=== PATIENT | female | born 1985 | race African-American/Black ===

== ENCOUNTER 2016-06-06 22:32 | Emergency (ER) | payer SELFPAY ==
--- NOTE | 2016-06-07 01:59 | ER Document Report ---
ED General - General Chief Complaint: Sore Throat Stated Complaint: SORE THROAT Notes: Patient is a 30-year-old female without past medical history who presents with 8 days of sore throat. Describes the pain as a constant, dull, scratching pain. States it makes it difficult for her swallow but admits that she continues to eat and drink. Denies any shortness of breath. She has seen her primary care doctor regarding this concern was told it was a viral infection. She has been taking ibuprofen with minimal improvement of her symptoms. Multiple sick contacts with similar symptoms. She denies any headache or altered mental status. She does have a history of similar symptoms in the past. TRAVEL OUTSIDE OF THE [place] IN LAST 30 DAYS: No - Related Data Allergies/Adverse Reactions: Penicillins Allergy (Verified 06/06/16 23:39) Past Medical History - General Information source: Patient - Social History Smoking Status: Never Smoker Chew tobacco use (# tins/day): No Frequency of alcohol use: Occasional Drug Abuse: None Lives with: Spouse/Significant other Family History: Reviewed & Not Pertinent Patient has suicidal ideation: No Patient has homicidal ideation: No Renal/ Medical History: Denies: Hx Peritoneal Dialysis Review of Systems - Review of Systems Notes: Constitutional: Negative for fever. HENT: Positive for sore throat. Eyes: Negative for visual changes. Cardiovascular: Negative for chest pain. Respiratory: Negative for shortness of breath. Gastrointestinal: Negative for abdominal pain, vomiting or diarrhea. Genitourinary: Negative for dysuria. Musculoskeletal: Negative for back pain. Skin: Negative for rash. Neurological: Negative for headaches, weakness or numbness. 10 point ROS negative except as marked above and in HPI. Physical Exam - Vital signs Vitals: Temp Pulse Resp BP Pulse Ox 98.5 F 81 20 153/114 H 94 06/06/16 23:33 06/06/16 23:33 06/06/16 23:33 06/06/16 23:33 06/06/16 23:33 Interpretation: Hypertensive Notes: PHYSICAL EXAMINATION: GENERAL: Well-appearing, well-nourished and in no acute distress. HEAD: Atraumatic, normocephalic. EYES: Pupils equal round and reactive to light, extraocular movements intact, sclera anicteric, conjunctiva are normal. ENT: nares patent, oropharynx clear without exudates. Moist mucous membranes. NECK: Normal range of motion, submandibular and bilateral anterior lymphadenopathy LUNGS: Breath sounds clear to auscultation bilaterally and equal. No wheezes rales or rhonchi. HEART: Regular rate and rhythm without murmurs ABDOMEN: Soft, nontender, normoactive bowel sounds. No guarding, no rebound. No masses appreciated. EXTREMITIES: Normal range of motion, no pitting or edema. No cyanosis. NEUROLOGICAL: No focal neurological deficits. Moves all extremities spontaneously and on command. PSYCH: Normal mood, normal affect. SKIN: Warm, Dry, normal turgor, no rashes or lesions noted. Course - Re-evaluation Re-evalutation: 06/07/16 01:59 Presentation of several days of sore throat in an otherwise well-appearing patient. Rapid strep is negative. History and exam are not consistent with a retropharyngeal abscess or peritonsillar abscess. Airway is patent. No difficulty handling oral secretions. Vitals within normal limits. At this time will discharge with return precautions and follow-up recommendations. Verbal discharge instructions given a the bedside and opportunity for questions given. Medication warnings reviewed. Patient is in agreement with this plan and has verbalized understanding of return precautions and the need for primary care follow-up in the nex - Vital Signs Vital signs: Temp Pulse Resp BP Pulse Ox 98.6 F 80 18 162/107 H 94 06/07/16 02:07 06/07/16 02:07 06/07/16 02:07 06/07/16 02:07 06/07/16 02:07 Discharge - Discharge Clinical Impression: Sore throat Condition: Good Disposition: HOME, SELF-CARE Additional Instructions: Your symptoms are most likely due to a viral infection it should resolve over the next 7-14 days. You should take [id number]-[id number] guanfacine per bottle instructions to help thin the mucus. For nasal congestion: I would recommend that you get [id number] oxymetazoline also known is afrin. Use only per bottle instructions and be sure to never use this for more than 3 days if you can develop severe rebound congestion. You may also use tylenol or ibuprofen as needed for aches and thorat discomfort. Please be sure to drink plenty of fluids and get rest. Return to the emergency department he began having difficulty breathing, chest pain, persistent vomiting, or any other symptoms that are concerning to you.
[2016-06-07] MEDS ORDERED: DEXAMETHASONE 4 MG TABLET PO ONE (02:05)
[2016-06-07 02:08] VITALS: BP 162/107
== END 2016-06-07 02:18 | disposition home or self-care (01) ==
LOC: ER 22:32
DX: J02.9 Acute pharyngitis, unspecified (principal)
CPT/HCPCS: 87070; 87880; 99283

== ENCOUNTER 2016-10-19 03:49 | Emergency (ER) | payer OTHER ==
[2016-10-19 03:54] VITALS: BP 162/114
--- NOTE | 2016-10-19 05:01 | ER Document Report ---
HPI - HPI Pain Level: 2 Notes: Patient is a 31-year-old female presents the ED complaining of nasal congestion/ discharge, right ear pain, decreased hearing to the right ear, and an occasional dry cough. Patient states her symptoms have been ongoing for 2 days. She still eating and drinking without any difficulties. Patient is allergic to penicillins. Denies any daily medications or other significant past medical history. Patient is a former smoker but denies any other illicit drug use. Denies any headache, fever, head injury, neck pain/stiffness, sore throat, chest pain, palpitations, syncope, shortness of breath, wheeze, dyspnea , abdominal pain, nausea/vomiting/diarrhea, dysuria, hematuria, or rash. - ROS Notes: REVIEW OF SYSTEMS: CONSTITUTIONAL : Denies fever, chills, or sweats. Denies recent illness. EENT: see hpi CARDIOVASCULAR: Denies chest pain. Denies palpitations or racing or irregular heart beat. Denies ankle edema. RESPIRATORY: see hpi GASTROINTESTINAL: Denies abdominal pain or distention. Denies nausea, vomiting , or diarrhea. Denies blood in vomitus, stools, or per rectum. Denies black, tarry stools. Denies constipation. GENITOURINARY: Denies difficulty urinating, painful urination, burning, frequency, blood in urine, or discharge. MUSCULOSKELETAL: Denies back or neck pain or stiffness. Denies joint pain or swelling. SKIN: Denies rash, lesions or sores. NEUROLOGICAL: Denies confusion or altered mental status. Denies passing out or loss of consciousness. Denies dizziness or lightheadedness. Denies headache. Denies weakness or paralysis or loss of use of either side. Denies problems with gait or speech. Denies sensory loss, numbness, or tingling. ALL OTHER SYSTEMS REVIEWED AND NEGATIVE. Dictation was performed using [employer] voice recognition software - REPRODUCTIVE LMP: na - DERM Skin Color: Normal Past Medical History - Social History Smoking Status: Former Smoker Family History: Reviewed & Not Pertinent Patient has suicidal ideation: No Patient has homicidal ideation: No Renal/ Medical History: Denies: Hx Peritoneal Dialysis Vertical Provider Document - CONSTITUTIONAL Agree With Documented VS: Yes Notes: PHYSICAL EXAMINATION: GENERAL: Well-appearing, well-nourished and in no acute distress. HEAD: Atraumatic, normocephalic. EYES: Pupils equal round and reactive to light, extraocular movements intact, sclera anicteric, conjunctiva are normal. ENT: EAC clear b/l. TM's intact b/l without fluid, or perforation, + air behind rt TM without bulging. Nares patent and with clear discharge. oropharynx clear without exudates. No tonsilar hypertrophy or erythema. Moist mucous membranes. No sinus tenderness. NECK: Normal range of motion, supple without lymphadenopathy. No rigidity/ meningismus. LUNGS: Breath sounds clear to auscultation bilaterally and equal. No wheezes rales or rhonchi. HEART: Regular rate and rhythm without murmurs, rubs, gallops. PSYCH: Normal mood, normal affect. SKIN: Warm, Dry, normal turgor, no rashes or lesions noted. - INFECTION CONTROL TRAVEL OUTSIDE OF THE [place] IN LAST 30 DAYS: No - RESPIRATORY O2 Sat by Pulse Oximetry: 94 Course - Re-evaluation Re-evalutation: 10/19/16 04:59 Patient is an afebrile, well-hydrated, 31-year-old female who presents the ED with acute sinusitis/URI, suspect viral at this time based on H&P. Vitals are stable. PE otherwise unremarkable. I will send the patient home with Nasonex to use as directed. Advised Mucinex with Sudafed as well and nasal saline rinses. Conservative measures otherwise. Recheck with PCM in 2-3 days. Return to ED with any worsening/concerning symptoms otherwise as reviewed in discharge. Consider consult with ENT for ongoing symptoms as well. - Vital Signs Vital signs: Temp Pulse Resp BP Pulse Ox 97.9 F 79 18 162/114 H 94 10/19/16 03:50 10/19/16 03:50 10/19/16 03:50 10/19/16 03:50 10/19/16 03:50 Discharge - Discharge Clinical Impression: URI (upper respiratory infection) Qualifiers: URI type: unspecified URI Qualified Code(s): J06.9 - Acute upper respiratory infection, unspecified Acute sinusitis Qualifiers: Sinusitis location: maxillary Recurrence: not specified as recurrent Qualified Code(s): J01.00 - Acute maxillary sinusitis, unspecified Condition: Stable Disposition: HOME, SELF-CARE Instructions: Upper Respiratory Illness ([facility]), Viral Syndrome ([facility]), Sinusitis ([facility]) Additional Instructions: Maintain adequate fluid intake Take meds as directed tylenol/ibuprofen as needed over the counter cold medication as needed for symptoms--mucinex/pseudafed nasal saline rinses Humidified air may help F/u: with your PCM in 2-3 days for a recheck Return to the ED with any fever, worsening pain, facial swelling, neck pain/ stiffness, chest pain, shortness of breath, trouble swallowing/breathing, abdominal pain, n/v/d, or worsening/concerning symptoms otherwise. Prescriptions: Mometasone Furoate [Nasonex] 2 spray NS DAILY #1 spray.pump Referrals: [facility] [Provider Group] - Follow up as needed [facility] [Provider Group] - Follow up as needed ENT [Provider Group] - Follow up as needed
== END 2016-10-19 05:24 | disposition home or self-care (01) ==
LOC: ER 03:49
DX: J06.9 Acute upper respiratory infection, unspecified (principal); J01.00 Acute maxillary sinusitis, unspecified; R09.81 Nasal congestion; H92.01 Otalgia, right ear; Z88.0 Allergy status to penicillin; Z87.891 Personal history of nicotine dependence
CPT/HCPCS: 99282

== ENCOUNTER 2017-05-19 21:24 | Emergency (ER) | payer OTHER ==
[2017-05-19 22:30] VITALS: BP 158/114
--- NOTE | 2017-05-19 23:26 | RADIOLOGY REPORT (SQ) ---
EXAM DESCRIPTION: KNEE LEFT 3 VIEWS CLINICAL HISTORY: 31 years, Female, PAIN COMPARISON: None. NUMBER OF VIEWS: 3 Findings: Bones, joints, and soft tissues of the left knee appear intact. IMPRESSION: No acute findings.
--- NOTE | 2017-05-20 00:19 | ER Document Report ---
ED Extremity Problem, Lower - General Chief Complaint: L knee pain s/p fall Stated Complaint: FALL/KNEE PAIN Time Seen by Provider: 05/19/17 23:25 Mode of Arrival: Ambulatory Information source: Patient TRAVEL OUTSIDE OF THE [place] IN LAST 30 DAYS: No - HPI Patient complains to provider of: Injury, Pain Location: Knee Occurred: Yesterday Notes: Patient is here with complaints of left knee pain. She states that she tripped going up the steps at her home last evening and twisted her knee. She says states that it was somewhat sore today when she woke up. While she was walking at work, she states that her knee "locked up on her "causing her to fall onto her left knee. She has had increased pain since that time. She is able to ambulate. She denies any numbness, tingling, weakness. She denies any fever or redness. No nausea, vomiting, diarrhea. She denies any other injuries. She denies any rash. Pain is worse with walking and movement as well as touching the anterior knee, nothing seems to make it better. She denies any other injuries or other complaints at this time. - Related Data Allergies/Adverse Reactions: Penicillins Allergy (Verified 06/06/16 23:39) Past Medical History - Social History Smoking Status: Never Smoker Chew tobacco use (# tins/day): No Frequency of alcohol use: Occasional Drug Abuse: None Family History: Reviewed & Not Pertinent Patient has suicidal ideation: No Patient has homicidal ideation: No Renal/ Medical History: Denies: Hx Peritoneal Dialysis Past Surgical History: Reports: Hx Section - x3, Hx Cholecystectomy - Immunizations Hx Diphtheria, Pertussis, Tetanus Vaccination: Yes Review of Systems - Review of Systems -: Yes All other systems reviewed and negative Physical Exam - Vital signs Vitals: Temp Pulse Resp BP Pulse Ox 98.3 F 73 16 172/112 H 97 05/19/17 22:26 05/19/17 22:26 05/19/17 22:26 05/19/17 22:26 05/19/17 22:26 - Notes Notes: GENERAL: alert, cooperative, nontoxic, no distress. HEAD: normocephalic, atraumatic EYES: conjunctiva pink without discharge, no external redness or swelling. EARS: no external swelling, no external redness NOSE: atraumatic, no external swelling MOUTH/THROAT: mucous membranes moist and pink NECK: soft, supple, full range of motion, no meningismus. CHEST: no distress, lungs clear and equal throughout. No wheezing, rales, rhonchi. CARDIAC: regular rate and rhythm, no murmur, normal capillary refill, normal pulses. BACK: full range of motion, no CVA tenderness. EXTREMITIES: full range of motion of all extremities. No redness, no swelling. Tenderness to palpation of the left anterior knee. No swelling. No deformity. No ligament instability. Negative anterior posterior drawer. Normal straight leg raise. Normal pulse and sensation distally. Ankle and hip exam are unremarkable. Compartments are soft. NEURO: alert and oriented 3, no focal deficits, full range of motion of all extremities. PYSCH: appropriate mood, affect. Patient is cooperative. SKIN: pink, warm, dry, no rash. Course - Re-evaluation Re-evalutation: 05/20/17 00:16 Patient is nontoxic appearing with stable vitals. The patient twisted her knee last evening and then fell onto her knee today. 7 some anterior knee pain. She has no deformity or signs of infection. There is no ligament instability. No sign of patellar or quadriceps tendon rupture. Normal neurovascular exam. Compartments are soft. Joint above and below the knee are unremarkable. X- rays of the left knee show no acute abnormality per the radiologist. Patient will be placed in an Davonte wrap for comfort. Discharged home with Voltaren as needed for pain. Rest, ice, elevate. Follow-up for pain that has not improved in 1 week, sooner for increasing pain, high fever, redness, numbness, tingling, weakness, any further concerns. The patient is noted to have elevated blood pressure during today's emergency department visit. The patient was informed of this finding. The patient was instructed that this may be related to pre-hypertension and requires further evaluation with a primary care provider. The patient has no hypertensive symptoms at this time. The patient's emergency department workup and current diagnosis were explained to the patient and or family. Follow-up instructions were provided. Medications if prescribed were discussed. Instructions for when to return to the emergency department including specific worrisome symptoms were discussed with the patient and/or family. - Vital Signs Vital signs: Temp Pulse Resp BP Pulse Ox 98.3 F 73 16 158/114 H 97 05/19/17 22:26 05/19/17 22:26 05/19/17 22:26 05/19/17 22:28 05/19/17 22:26 Procedures - Immobilization Left knee Pre-Proc Neuro Vasc Exam: Normal Immobilizer type: Davonte wrap Performed by: RN Post-Proc Neuro Vasc Exam: Normal Alignment checked and good: Yes Discharge - Discharge Clinical Impression: Left knee sprain Qualifiers: Encounter type: initial encounter Involved ligament of knee: unspecified ligament Qualified Code(s): S83.92XA - Sprain of unspecified site of left knee, initial encounter Contusion of left knee Qualifiers: Encounter type: initial encounter Qualified Code(s): S80.02XA - Contusion of left knee, initial encounter Condition: Stable Disposition: HOME, SELF-CARE Instructions: Ice & Elevation ([facility]), Sprained Knee ([facility]) Additional Instructions: Take medications as prescribed. Wear Davonte wrap as needed for comfort. Rest, ice , elevate your knee. Follow-up with your doctor if not better in 1 week, sooner for increasing pain, high fever, persistent vomiting, numbness, tingling , weakness, any further concerns. Your blood pressure was elevated during today's visit. Have this rechecked with your doctor. Prescriptions: Diclofenac Sodium [Voltaren 50 Mg Tablet.] 50 mg PO BID #20 tablet.dr Forms: Elevated Blood Pressure, Smoking Cessation Education Referrals: [facility] [Provider Group] - Follow up as needed
== END 2017-05-20 00:48 | disposition home or self-care (01) ==
LOC: ER 21:24
DX: S83.92XA Sprain of unspecified site of left knee, initial encounter (principal); S80.02XA Contusion of left knee, initial encounter; M25.562 Pain in left knee; W18.43XA Slipping, tripping and stumbling without falling due to stepping from one level to another, initial encounter; Y92.009 Unspecified place in unspecified non-institutional (private) residence as the place of occurrence of the external cause; R03.0 Elevated blood-pressure reading, without diagnosis of hypertension
CPT/HCPCS: 99283

== ENCOUNTER 2018-03-08 01:03 | Emergency (ER) | payer OTHER ==
[2018-03-08] MEDS ORDERED: SULFAMETHOXAZOLE/TRIMETHOPRIM 800-160 MG TABLET PO ONE (01:47)
[2018-03-08] MEDS ORDERED: ACETAMINOPHEN 325 MG TABLET PO ONE (01:48)
--- NOTE | 2018-03-08 01:52 | ER Document Report ---
ED General - General Chief Complaint: Headache Stated Complaint: HEADACHE Time Seen by Provider: 03/08/18 01:34 TRAVEL OUTSIDE OF THE [place] IN LAST 30 DAYS: No - HPI Notes: Patient is a 32-year-old female that presents to the emergency department for chief complaint of scalp bump. Patient states 2 days ago she noticed a swollen painful area on the top of her scalp. She noticed it while brushing her hair and states it was painful when the hairbrush hit it. She denies any injury or trauma. She denies any drainage from the area. She has never had infections in her skin before. She denies any recent hair color treatments. Past Medical History: Negative Past Surgical History: Negative Social History: Denies drugs alcohol or tobacco Family History: Reviewed and noncontributory for presenting illness Allergies: Reviewed, see documented allergy list. REVIEW OF SYSTEMS: CONSTITUTIONAL : No fever No chills No diaphoresis No recent illness EENT: No vision changes No congestion No sore throat CARDIOVASCULAR: No chest pain No palpitations RESPIRATORY: No shortness of breath No cough No difficulty breathing GASTROINTESTINAL: No abdominal pain No nausea No vomiting No diarrhea GENITOURINARY: No dysuria No hematuria No difficulty urinating MUSCULOSKELETAL: No back pain No leg pain No arm pain SKIN: No rashes Scalp lesions LYMPHATIC: No swollen, enlarged glands. NEUROLOGICAL: No lightheadedness No headache No weakness No paresthesias PSYCHIATRIC: No anxiety No depression PHYSICAL EXAMINATION: Vital signs reviewed, nursing noted reviewed. GENERAL: Well-appearing, well-nourished and in no acute distress. HEAD: Atraumatic, normocephalic. EYES: Eyes appear normal, extraocular movements intact, sclera anicteric, conjunctiva are normal. ENT: nares patent, oropharynx clear without exudates. Moist mucous membranes. NECK: Normal range of motion, supple without lymphadenopathy LUNGS: Breath sounds clear to auscultation bilaterally and equal. No wheezes rales or rhonchi. HEART: Regular rate and rhythm without murmurs ABDOMEN: Soft, nontender, normoactive bowel sounds. No rebound, guarding, or rigidity. No masses appreciated. EXTREMITIES: Nontender, good range of motion, no pitting or edema. NEUROLOGICAL: No focal neurological deficits. Moves all extremities spontaneously Motor and sensory grossly intact on exam. PSYCH: Normal mood, normal affect. SKIN: Warm, Dry, normal turgor, 1 cm area of tenderness and edema midline on the top of the scalp. No area of fluctuance, no erythema, no drainage - Related Data Allergies/Adverse Reactions: Penicillins Allergy (Verified 06/06/16 23:39) Past Medical History - Social History Smoking Status: Unknown if Ever Smoked Family History: Reviewed & Not Pertinent Patient has suicidal ideation: No Patient has homicidal ideation: No Renal/ Medical History: Denies: Hx Peritoneal Dialysis Past Surgical History: Reports: Hx Section - x3, Hx Cholecystectomy - Immunizations Hx Diphtheria, Pertussis, Tetanus Vaccination: Yes Course - Re-evaluation Re-evalutation: 03/08/18 0 Vitals reviewed. Nursing notes reviewed. Patient given Tylenol for pain. About 1 cm in diameter.She has an exquisitely tender area on the top of her head. There is no area of abscess. Patient will be treated with antibiotics for early folliculitis. She will follow with primary care for reevaluation in a few days. Discharge - Discharge Clinical Impression: Folliculitis Condition: Stable Disposition: HOME, SELF-CARE Instructions: Folliculitis ([facility]), Family Physicians / Practices Additional Instructions: Please return to the emergency department if you have any worsening, or concern of your symptoms. Please return to the emergency department if you develop chest pain, difficulty breathing, severe abdominal pain, or ongoing vomiting. Please follow-up with your primary care physician in 2-3 days and any other recommended physicians. If prescribed, take all medications as directed. If you have any questions or concerns do not hesitate to return the emergency department for evaluation. Prescriptions: Sulfamethoxazole/Trimethoprim [Bactrim Ds Tablet] 1 each PO BID #10 tablet Referrals: [facility] [Provider Group] - Follow up in 3-5 days
[2018-03-08 01:59] VITALS: BP 142/87
== END 2018-03-08 01:58 | disposition home or self-care (01) ==
LOC: ER 01:03
DX: L73.9 Follicular disorder, unspecified (principal); R51 Headache; Z88.0 Allergy status to penicillin; Z90.49 Acquired absence of other specified parts of digestive tract
CPT/HCPCS: 99283

== ENCOUNTER 2018-08-09 21:43 | Emergency (ER) | payer OTHER ==
--- NOTE | 2018-08-10 03:22 | ER Document Report ---
ED General - General Chief Complaint: Lip Swelling Stated Complaint: LIP SWELLING,SINUS PRESSURE Time Seen by Provider: 08/10/18 02:37 [facility] Provider: [facility] [Primary [facility]] - Follow up as needed Notes: Patient is a 32-year-old female with a past medical history of essential hypertension who presents with upper lip swelling that started approximately 1700 yesterday and has progressed somewhat since that time. States that initially started just in the right corner of her lip and progressed to the entirety of her upper lip. She denies any feelings of difficulty breathing or swallowing. No tongue swelling. Recently started lisinopril but did take it in the past without any difficulty. She states that symptoms started gradually, have progressed since that time although have remained somewhat stable for the last 2 hours while in the emergency department waiting room. No history of similar symptoms in the past. Took Benadryl without improvement. No obvious worsening factor. TRAVEL OUTSIDE OF THE [place] IN LAST 30 DAYS: No - Related Data Allergies/Adverse Reactions: Penicillins Allergy (Verified 06/06/16 23:39) Past Medical History - General Information source: Patient - Social History Smoking Status: Never Smoker Frequency of alcohol use: None Drug Abuse: None Lives with: Spouse/Significant other Family History: Reviewed & Not Pertinent Patient has suicidal ideation: No Patient has homicidal ideation: No - Past Medical History Cardiac Medical History: Reports: Hx Hypertension Renal/ Medical History: Denies: Hx Peritoneal Dialysis Past Surgical History: Reports: Hx Section - x3, Hx Cholecystectomy - Immunizations Hx Diphtheria, Pertussis, Tetanus Vaccination: Yes Review of Systems - Review of Systems Notes: Constitutional: Negative for fever. HENT: Positive for upper lip swelling Eyes: Negative for visual changes. Cardiovascular: Negative for chest pain. Respiratory: Negative for shortness of breath. Gastrointestinal: Negative for abdominal pain, vomiting or diarrhea. Genitourinary: Negative for dysuria. Musculoskeletal: Negative for back pain. Skin: Negative for rash. Neurological: Negative for headaches, weakness or numbness. 10 point ROS negative except as marked above and in HPI. Physical Exam - Vital signs Vitals: Temp Pulse Resp BP Pulse Ox 98.4 F 67 16 153/112 H 100 08/09/18 22:16 08/09/18 22:16 08/09/18 22:16 08/09/18 22:16 08/09/18 22:16 Interpretation: Hypertensive Notes: PHYSICAL EXAMINATION: GENERAL: Well-appearing, well-nourished and in no acute distress. HEAD: Atraumatic, normocephalic. EYES: Pupils equal round and reactive to light, extraocular movements intact, sclera anicteric, conjunctiva are normal. ENT: nares patent, oropharynx clear without exudates. No posterior pharyngeal edema. Mild swelling of the upper lip. Moist mucous membranes. NECK: Normal range of motion, supple without lymphadenopathy LUNGS: Breath sounds clear to auscultation bilaterally and equal. No wheezes rales or rhonchi. HEART: Regular rate and rhythm without murmurs ABDOMEN: Soft, nontender, normoactive bowel sounds. No guarding, no rebound. No masses appreciated. EXTREMITIES: Normal range of motion, no pitting or edema. No cyanosis. NEUROLOGICAL: No focal neurological deficits. Moves all extremities spontaneously and on command. PSYCH: Normal mood, normal affect. SKIN: Warm, Dry, normal turgor, no rashes or lesions noted. Course - Re-evaluation Re-evalutation: 08/10/18 03:21 Patient presents with angioedema of the lips secondary to lisinopril. No oropharyngeal involvement. Airway patent. Phonation normal. Able to handle secretions. Tolerating oral intake without difficulty. Patient was observed and did not develop any progression of the swelling or any evidence of airway occlusion. They have been educated at length about the importance of avoiding ACEi and ARBs. At this time will discharge with return precautions and follow-up recommendations. Verbal discharge instructions given a the bedside and opportunity for questions given. Medication warnings reviewed. Patient is in agreement with this plan and has verbalized understanding of return precautions and the need for primary care follow-up in the next 24-72 hours. - Vital Signs Vital signs: Temp Pulse Resp BP Pulse Ox 98.4 F 67 16 153/112 H 100 08/09/18 22:16 08/09/18 22:16 08/09/18 22:16 08/09/18 22:16 08/09/18 22:16 Discharge - Discharge Clinical Impression: Angioedema of lips Qualifiers: Encounter type: initial encounter Qualified Code(s): T78.3XXA - Angioneurotic edema, initial encounter HARVEY inhibitor-aggravated angioedema Qualifiers: Encounter type: initial encounter Qualified Code(s): T78.3XXA - Angioneurotic edema, initial encounter Condition: Good Disposition: HOME, SELF-CARE Additional Instructions: You have been diagnosed with angioedema today. This is related to a medication you are taking called lisinopril. You may never take this medication again as you could have a recurrence of an even more severe version of what brought you to to the emergency department today. Please have your primary care physician for recommendations for alternative blood pressure medications. Your swelling will resolve over the next several days. Return to emergency room immediately if you have worsening swelling, shortness of breath, difficulty swallowing, noticed a change in your voice, or have any other symptoms that are of concern to you. Prescriptions: Hydrochlorothiazide [Hydrodiuril 25 mg Tablet] 25 mg PO QAM #30 tablet Referrals: [facility] [Primary Care Provider] - Follow up as needed
[2018-08-10 05:14] VITALS: BP 148/94
== END 2018-08-10 05:32 | disposition home or self-care (01) ==
LOC: ER 21:43
DX: T78.3XXA Angioneurotic edema, initial encounter (principal); T46.4X5A Adverse effect of angiotensin-converting-enzyme inhibitors, initial encounter; I10 Essential (primary) hypertension; Z88.0 Allergy status to penicillin
CPT/HCPCS: 99283